=== PATIENT | male | born 1960 | race Caucasian/White ===

== ENCOUNTER 2020-02-19 04:22 | Outpatient (CLI) | payer MEDICARE, SELFPAY ==
[2020-02-19 10:48] LABS: CREATININE 0.85 mg/dL (0.70-1.30)
== END 2020-02-19 04:42 ==
PROVIDERS: Visit Provider Preventive Medicine Undersea and Hyperbaric Medicine
DX: C34.90 Malignant neoplasm of unspecified part of unspecified bronchus or lung (principal)
CPT/HCPCS: 36415; 82565

== ENCOUNTER 2020-03-02 08:06 | Outpatient (CLI) | payer MEDICARE, SELFPAY ==
[2020-03-02 08:22] LABS: Abs Immature Grans 0.02 10^3/uL (0.0-0.06); Absolute Basophil Count 0.08 10^3/uL (0.0-0.2); Absolute Eosinophil Count 0.43 10^3/uL (0.0-0.7); Absolute Lymphocyte Count 1.77 10^3/uL (1.2-3.4); Absolute Monocyte Count 0.86 10^3/uL (0.1-0.8); Absolute Neutrophil Count 4.46 10^3/uL (1.2-6.7); Eosinophils % 5.6; HCT 40.8 % (40.0-50.0); HGB 13.5 g/dL (13.5-17.5); Immature Grans % 0.3; Lymphocytes % 23.2; MCH 28.8 pg (27.0-33.0); MCHC 33.1 % (32.0-36.0); MPV 8.6 fL (8.0-11.0); Monocytes % 11.3; Neutrophils % 58.6; Nucleated RBC 0 %; Platelet Count 302 10^3/uL (130-400); RBC 4.69 10^6/uL (4.36-5.78); RDW-SD 40.6 fL; WBC 7.62 10^3/uL (4.4-10.8)
[2020-03-02 08:42] LABS: ALT 16 U/L (16-63); AST 24 U/L (15-37); Albumin 3.1 g/dL (3.4-5.0); Alkaline Phosphatase 98 U/L (46-116); Anion Gap 5.3 mmol/L (3-11); BUN 20 mg/dL (7-18); Bilirubin, Total 0.2 mg/dL (0.2-1.0); CO2 31.7 mmol/L (21.0-32.0); CREATININE 1.07 mg/dL (0.70-1.30); Calcium 9.2 mg/dL (8.5-10.1); Chloride 104 mmol/L (98-107); Glucose 89 mg/dL (74-106); Magnesium 2.1 mg/dL (1.8-2.4); Potassium 4.4 mmol/L (3.5-5.1); Sodium 141 mmol/L (136-145)
== END 2020-03-02 08:26 ==
PROVIDERS: Visit Provider Internal Medicine Medical Oncology
DX: C34.32 Malignant neoplasm of lower lobe, left bronchus or lung (principal)
CPT/HCPCS: 36415; 80053; 83735; 85025

== ENCOUNTER 2020-03-09 02:07 | Outpatient (CLI) | payer MEDICARE, SELFPAY ==
[2020-03-09 08:14] LABS: Abs Immature Grans 0.03 10^3/uL (0.0-0.06); Absolute Basophil Count 0.03 10^3/uL (0.0-0.2); Absolute Eosinophil Count 0.22 10^3/uL (0.0-0.7); Absolute Lymphocyte Count 0.87 10^3/uL (1.2-3.4); Absolute Neutrophil Count 3.17 10^3/uL (1.2-6.7); Basophils % 0.6; Eosinophils % 4.5; HCT 39.5 % (40.0-50.0); HGB 13.4 g/dL (13.5-17.5); Immature Grans % 0.6; Lymphocytes % 17.7; MCH 28.9 pg (27.0-33.0); MCHC 33.9 % (32.0-36.0); MCV 85.3 fL (80-95); MPV 8.6 fL (8.0-11.0); Monocytes % 12.2; Neutrophils % 64.4; Nucleated RBC 0 %; Platelet Count 320 10^3/uL (130-400); RBC 4.63 10^6/uL (4.36-5.78); RDW 12.7 % (11.8-14.1); WBC 4.92 10^3/uL (4.4-10.8)
[2020-03-09 09:29] LABS: ALT 26 U/L (16-63); AST 26 U/L (15-37); Albumin 3.1 g/dL (3.4-5.0); Alkaline Phosphatase 98 U/L (46-116); Anion Gap 8.6 mmol/L (3-11); BUN 16 mg/dL (7-18); Bilirubin, Total 0.2 mg/dL (0.2-1.0); CO2 27.4 mmol/L (21.0-32.0); CREATININE 0.93 mg/dL (0.70-1.30); Calcium 9.1 mg/dL (8.5-10.1); Chloride 104 mmol/L (98-107); Glucose 96 mg/dL (74-106); Magnesium 2.1 mg/dL (1.8-2.4); Potassium 3.8 mmol/L (3.5-5.1); Sodium 140 mmol/L (136-145)
== END 2020-03-09 02:27 ==
PROVIDERS: Visit Provider Internal Medicine Medical Oncology
DX: C34.32 Malignant neoplasm of lower lobe, left bronchus or lung (principal)
CPT/HCPCS: 36415; 80053; 83735; 85025

== ENCOUNTER 2020-03-16 03:57 | Outpatient (CLI) | payer MEDICARE, SELFPAY ==
[2020-03-16 08:15] LABS: Abs Immature Grans 0.02 10^3/uL (0.0-0.06); Absolute Basophil Count 0.05 10^3/uL (0.0-0.2); Absolute Eosinophil Count 0.16 10^3/uL (0.0-0.7); Absolute Lymphocyte Count 0.95 10^3/uL (1.2-3.4); Absolute Monocyte Count 0.48 10^3/uL (0.1-0.8); Absolute Neutrophil Count 2.89 10^3/uL (1.2-6.7); Basophils % 1.1; Eosinophils % 3.5; HGB 13.6 g/dL (13.5-17.5); Immature Grans % 0.4; Lymphocytes % 20.9; MCV 85.3 fL (80-95); MPV 8.6 fL (8.0-11.0); Monocytes % 10.5; Neutrophils % 63.6; Nucleated RBC 0 %; Platelet Count 289 10^3/uL (130-400); RBC 4.69 10^6/uL (4.36-5.78); RDW 12.9 % (11.8-14.1); RDW-SD 39.3 fL; WBC 4.55 10^3/uL (4.4-10.8)
[2020-03-16 08:28] LABS: ALT 24 U/L (16-63); AST 21 U/L (15-37); Albumin 3.1 g/dL (3.4-5.0); Alkaline Phosphatase 90 U/L (46-116); BUN 16 mg/dL (7-18); Bilirubin, Total 0.4 mg/dL (0.2-1.0); CREATININE 0.99 mg/dL (0.70-1.30); Calcium 8.9 mg/dL (8.5-10.1); Chloride 106 mmol/L (98-107); Glucose 114 mg/dL (74-106); Magnesium 1.9 mg/dL (1.8-2.4); Potassium 3.6 mmol/L (3.5-5.1); Sodium 142 mmol/L (136-145); Total Protein 6.9 g/dL (6.4-8.2)
== END 2020-03-16 04:17 ==
PROVIDERS: Visit Provider Internal Medicine Medical Oncology
DX: C34.32 Malignant neoplasm of lower lobe, left bronchus or lung (principal)
CPT/HCPCS: 36415; 80053; 83735; 85025

== ENCOUNTER 2020-03-17 10:53 | Outpatient (CLI) | payer MEDICARE, SELFPAY ==
[2020-03-18 18:21] VITALS: PULSE 100; PULSE 104; RESP 20; RESP 22; RESP 32; O2SAT 96; O2SAT 98
--- NOTE | 2020-03-18 18:46 | RESPIRATORY ---
Pt has resting Spo2 of 98% on RA. Upon ambulation for 6 minute walk pt did not desat below 96% and did not require supplemental o2. Mr. Rodgers had to stop multiple times during his walk and appeared to have severe air hunger, w/ RR reaching 38. It took several minutes for him to recover to a respiratory rate of 20, all while maintaining his o2 sat @ 96%.
== END 2020-03-17 11:13 ==
PROVIDERS: Visit Provider Internal Medicine Medical Oncology
DX: R06.89 Other abnormalities of breathing (principal)
CPT/HCPCS: 94618

== ENCOUNTER 2020-03-23 03:42 | Outpatient (CLI) | payer MEDICARE, SELFPAY ==
[2020-03-23 08:10] LABS: Abs Immature Grans 0.02 10^3/uL (0.0-0.06); Absolute Basophil Count 0.05 10^3/uL (0.0-0.2); Absolute Eosinophil Count 0.16 10^3/uL (0.0-0.7); Absolute Lymphocyte Count 0.66 10^3/uL (1.2-3.4); Absolute Monocyte Count 0.49 10^3/uL (0.1-0.8); Absolute Neutrophil Count 1.84 10^3/uL (1.2-6.7); Basophils % 1.6; HCT 38.8 % (40.0-50.0); HGB 13.1 g/dL (13.5-17.5); Immature Grans % 0.6; Lymphocytes % 20.5; MCHC 33.8 % (32.0-36.0); MCV 85.8 fL (80-95); MPV 8.4 fL (8.0-11.0); Monocytes % 15.2; Neutrophils % 57.1; Nucleated RBC 0 %; Platelet Count 258 10^3/uL (130-400); RBC 4.52 10^6/uL (4.36-5.78); RDW 13.2 % (11.8-14.1); RDW-SD 40.1 fL; WBC 3.22 10^3/uL (4.4-10.8)
[2020-03-23 08:28] LABS: ALT 25 U/L (16-63); AST 20 U/L (15-37); Albumin 3.1 g/dL (3.4-5.0); Alkaline Phosphatase 91 U/L (46-116); Anion Gap 6.6 mmol/L (3-11); BUN 21 mg/dL (7-18); Bilirubin, Total 0.2 mg/dL (0.2-1.0); CO2 27.4 mmol/L (21.0-32.0); CREATININE 0.92 mg/dL (0.70-1.30); Calcium 8.8 mg/dL (8.5-10.1); Chloride 105 mmol/L (98-107); Glucose 117 mg/dL (74-106); Magnesium 1.8 mg/dL (1.8-2.4); Potassium 3.8 mmol/L (3.5-5.1); Sodium 139 mmol/L (136-145); Total Protein 6.8 g/dL (6.4-8.2)
== END 2020-03-23 04:02 ==
PROVIDERS: Visit Provider Internal Medicine Medical Oncology
DX: C34.32 Malignant neoplasm of lower lobe, left bronchus or lung (principal)
CPT/HCPCS: 36415; 80053; 83735; 85025

== ENCOUNTER 2020-03-30 02:53 | Outpatient (CLI) | payer MEDICARE, SELFPAY ==
[2020-03-30 08:13] LABS: Abs Immature Grans 0.03 10^3/uL (0.0-0.06); Absolute Basophil Count 0.03 10^3/uL (0.0-0.2); Absolute Eosinophil Count 0.18 10^3/uL (0.0-0.7); Absolute Lymphocyte Count 0.57 10^3/uL (1.2-3.4); Absolute Neutrophil Count 2.42 10^3/uL (1.2-6.7); Basophils % 0.8; HCT 37.9 % (40.0-50.0); HGB 12.7 g/dL (13.5-17.5); Immature Grans % 0.8; Lymphocytes % 15.7; MCH 29.1 pg (27.0-33.0); MCHC 33.5 % (32.0-36.0); MCV 86.7 fL (80-95); MPV 8.5 fL (8.0-11.0); Neutrophils % 66.7; Nucleated RBC 0 %; Platelet Count 182 10^3/uL (130-400); RBC 4.37 10^6/uL (4.36-5.78); RDW 14.1 % (11.8-14.1); RDW-SD 42.7 fL; WBC 3.63 10^3/uL (4.4-10.8)
[2020-03-30 08:24] LABS: ALT 24 U/L (16-63); AST 20 U/L (15-37); Albumin 3.2 g/dL (3.4-5.0); Alkaline Phosphatase 75 U/L (46-116); Anion Gap 5.7 mmol/L (3-11); BUN 14 mg/dL (7-18); Bilirubin, Total 0.3 mg/dL (0.2-1.0); CO2 30.3 mmol/L (21.0-32.0); CREATININE 0.92 mg/dL (0.70-1.30); Calcium 8.9 mg/dL (8.5-10.1); Chloride 104 mmol/L (98-107); Glucose 109 mg/dL (74-106); Magnesium 1.7 mg/dL (1.8-2.4); Sodium 140 mmol/L (136-145); Total Protein 6.7 g/dL (6.4-8.2)
== END 2020-03-30 03:13 ==
PROVIDERS: Visit Provider Internal Medicine Medical Oncology
DX: C34.32 Malignant neoplasm of lower lobe, left bronchus or lung (principal)
CPT/HCPCS: 36415; 80053; 83735; 85025

== ENCOUNTER 2020-04-06 01:46 | Outpatient (CLI) | payer MEDICARE, SELFPAY ==
[2020-04-06 08:19] LABS: Abs Immature Grans 0.04 10^3/uL (0.0-0.06); Absolute Basophil Count 0.02 10^3/uL (0.0-0.2); Absolute Eosinophil Count 0.12 10^3/uL (0.0-0.7); Absolute Lymphocyte Count 0.45 10^3/uL (1.2-3.4); Absolute Monocyte Count 0.36 10^3/uL (0.1-0.8); Absolute Neutrophil Count 1.87 10^3/uL (1.2-6.7); Basophils % 0.7; Eosinophils % 4.2; HCT 35.6 % (40.0-50.0); HGB 11.9 g/dL (13.5-17.5); Immature Grans % 1.4; Lymphocytes % 15.7; MCH 28.9 pg (27.0-33.0); MCHC 33.4 % (32.0-36.0); MCV 86.4 fL (80-95); Monocytes % 12.6; Neutrophils % 65.4; Nucleated RBC 0 %; Platelet Count 129 10^3/uL (130-400); RBC 4.12 10^6/uL (4.36-5.78); RDW 14.3 % (11.8-14.1); RDW-SD 42.4 fL; WBC 2.86 10^3/uL (4.4-10.8)
[2020-04-06 08:34] LABS: ALT 22 U/L (16-63); AST 17 U/L (15-37); Albumin 3.2 g/dL (3.4-5.0); Alkaline Phosphatase 78 U/L (46-116); Anion Gap 8.7 mmol/L (3-11); BUN 19 mg/dL (7-18); Bilirubin, Total 0.3 mg/dL (0.2-1.0); CO2 27.3 mmol/L (21.0-32.0); CREATININE 1.01 mg/dL (0.70-1.30); Calcium 8.5 mg/dL (8.5-10.1); Chloride 106 mmol/L (98-107); Glucose 115 mg/dL (74-106); Magnesium 1.7 mg/dL (1.8-2.4); Sodium 142 mmol/L (136-145); Total Protein 6.6 g/dL (6.4-8.2)
== END 2020-04-06 02:06 ==
PROVIDERS: Visit Provider Internal Medicine Medical Oncology
DX: C34.32 Malignant neoplasm of lower lobe, left bronchus or lung (principal)
CPT/HCPCS: 36415; 80053; 83735; 85025

== ENCOUNTER 2020-04-13 02:10 | Outpatient (CLI) | payer MEDICARE, SELFPAY ==
[2020-04-13 07:56] LABS: Abs Immature Grans 0.01 10^3/uL (0.0-0.06); Absolute Basophil Count 0.02 10^3/uL (0.0-0.2); Absolute Eosinophil Count 0.09 10^3/uL (0.0-0.7); Absolute Lymphocyte Count 0.36 10^3/uL (1.2-3.4); Absolute Monocyte Count 0.25 10^3/uL (0.1-0.8); Absolute Neutrophil Count 1.23 10^3/uL (1.2-6.7); Eosinophils % 4.6; HCT 32.1 % (40.0-50.0); HGB 11.2 g/dL (13.5-17.5); Immature Grans % 0.5; Lymphocytes % 18.4; MCH 29.2 pg (27.0-33.0); MCHC 34.9 % (32.0-36.0); MCV 83.8 fL (80-95); MPV 8.9 fL (8.0-11.0); Monocytes % 12.8; Neutrophils % 62.7; Nucleated RBC 0 %; Platelet Count 123 10^3/uL (130-400); RBC 3.83 10^6/uL (4.36-5.78); RDW 14.5 % (11.8-14.1); RDW-SD 41.4 fL
[2020-04-13 08:13] LABS: ALT 21 U/L (16-63); AST 16 U/L (15-37); Albumin 3.2 g/dL (3.4-5.0); Alkaline Phosphatase 80 U/L (46-116); Anion Gap 7.1 mmol/L (3-11); BUN 26 mg/dL (7-18); Bilirubin, Total 0.5 mg/dL (0.2-1.0); CO2 28.9 mmol/L (21.0-32.0); CREATININE 0.89 mg/dL (0.70-1.30); Calcium 9.2 mg/dL (8.5-10.1); Chloride 104 mmol/L (98-107); FREE T4 0.84 ng/dL (0.76-1.46); Glucose 92 mg/dL (74-106); Magnesium 1.8 mg/dL (1.8-2.4); Potassium 4.2 mmol/L (3.5-5.1); Sodium 140 mmol/L (136-145); TSH 2.79 uIU/mL (0.36-3.74); Total Protein 6.7 g/dL (6.4-8.2)
[2020-04-13 08:24] LABS: Diff Comment Diff Reviewed; WBC 1.96 10^3/uL (4.4-10.8)
[2020-04-13 08:25] LABS: RBC Morphology Normal
== END 2020-04-13 02:30 ==
PROVIDERS: Visit Provider Internal Medicine Medical Oncology
DX: C34.32 Malignant neoplasm of lower lobe, left bronchus or lung (principal); Z79.899 Other long term (current) drug therapy
CPT/HCPCS: 36415; 80053; 83735; 84439; 84443; 85025

== ENCOUNTER 2020-05-04 12:46 | Outpatient (CLI) | payer MEDICARE, SELFPAY ==
[2020-05-04 13:07] LABS: Abs Immature Grans 0.07 10^3/uL (0.0-0.06); Absolute Basophil Count 0.05 10^3/uL (0.0-0.2); Absolute Eosinophil Count 0.41 10^3/uL (0.0-0.7); Absolute Lymphocyte Count 0.62 10^3/uL (1.2-3.4); Absolute Monocyte Count 0.72 10^3/uL (0.1-0.8); Absolute Neutrophil Count 2.43 10^3/uL (1.2-6.7); Basophils % 1.2; Eosinophils % 9.5; HCT 28.4 % (40.0-50.0); HGB 9.6 g/dL (13.5-17.5); Immature Grans % 1.6; Lymphocytes % 14.4; MCH 30.2 pg (27.0-33.0); MCHC 33.8 % (32.0-36.0); MCV 89.3 fL (80-95); MPV 9.2 fL (8.0-11.0); Monocytes % 16.7; Neutrophils % 56.6; Nucleated RBC 0 %; Platelet Count 197 10^3/uL (130-400); RBC 3.18 10^6/uL (4.36-5.78); RDW 19.8 % (11.8-14.1); RDW-SD 60.9 fL
[2020-05-04 13:20] LABS: ALT 28 U/L (16-63); AST 15 U/L (15-37); Albumin 2.9 g/dL (3.4-5.0); Alkaline Phosphatase 106 U/L (46-116); Anion Gap 6.7 mmol/L (3-11); BUN 19 mg/dL (7-18); Bilirubin, Total 0.3 mg/dL (0.2-1.0); CO2 29.3 mmol/L (21.0-32.0); CREATININE 1.03 mg/dL (0.70-1.30); Calcium 8.8 mg/dL (8.5-10.1); Chloride 104 mmol/L (98-107); FREE T4 1.08 ng/dL (0.76-1.46); Glucose 114 mg/dL (74-106); Sodium 140 mmol/L (136-145); TSH 1.74 uIU/mL (0.36-3.74); Total Protein 7.1 g/dL (6.4-8.2)
== END 2020-05-04 13:06 ==
PROVIDERS: Visit Provider Internal Medicine Medical Oncology
DX: C34.32 Malignant neoplasm of lower lobe, left bronchus or lung (principal); Z79.899 Other long term (current) drug therapy
CPT/HCPCS: 36415; 80053; 83735; 84439; 84443; 85025

== ENCOUNTER 2020-06-01 03:24 | Outpatient (CLI) | payer OTHER, SELFPAY ==
[2020-06-01 09:21] LABS: Abs Immature Grans 0.02 10^3/uL (0.0-0.06); Absolute Basophil Count 0.05 10^3/uL (0.0-0.2); Absolute Lymphocyte Count 0.91 10^3/uL (1.2-3.4); Absolute Monocyte Count 0.73 10^3/uL (0.1-0.8); Absolute Neutrophil Count 4.52 10^3/uL (1.2-6.7); Basophils % 0.7; Eosinophils % 7.4; HGB 12.2 g/dL (13.5-17.5); Immature Grans % 0.3; Lymphocytes % 13.5; MCHC 33.9 % (32.0-36.0); MCV 94.5 fL (80-95); MPV 8.6 fL (8.0-11.0); Monocytes % 10.8; Neutrophils % 67.3; Nucleated RBC 0 %; Platelet Count 216 10^3/uL (130-400); RBC 3.81 10^6/uL (4.36-5.78); RDW 17.3 % (11.8-14.1); RDW-SD 59.9 fL; WBC 6.73 10^3/uL (4.4-10.8)
[2020-06-01 09:47] LABS: ALT 36 U/L (16-63); AST 24 U/L (15-37); Albumin 3.3 g/dL (3.4-5.0); Alkaline Phosphatase 83 U/L (46-116); Anion Gap 7.7 mmol/L (3-11); BUN 16 mg/dL (7-18); Bilirubin, Total 0.5 mg/dL (0.2-1.0); CO2 29.3 mmol/L (21.0-32.0); Calcium 9.6 mg/dL (8.5-10.1); Chloride 104 mmol/L (98-107); FREE T4 0.91 ng/dL (0.76-1.46); Glucose 113 mg/dL (74-106); Magnesium 2.2 mg/dL (1.8-2.4); Potassium 3.9 mmol/L (3.5-5.1); Sodium 141 mmol/L (136-145); TSH 2.76 uIU/mL (0.36-3.74); Total Protein 7.4 g/dL (6.4-8.2)
== END 2020-06-01 03:25 | disposition home or self-care (01) ==
PROVIDERS: PCP Nurse Practitioner Family; Visit Provider Internal Medicine Medical Oncology
DX: C34.32 Malignant neoplasm of lower lobe, left bronchus or lung (principal); Z79.899 Other long term (current) drug therapy
CPT/HCPCS: 36415; 80053; 83735; 84439; 84443; 85025

== ENCOUNTER 2020-06-29 04:24 | Outpatient (CLI) | payer OTHER, SELFPAY ==
[2020-06-29 10:39] LABS: Abs Immature Grans 0.02 10^3/uL (0.0-0.06); Absolute Basophil Count 0.01 10^3/uL (0.0-0.2); Absolute Lymphocyte Count 1.11 10^3/uL (1.2-3.4); Absolute Monocyte Count 0.68 10^3/uL (0.1-0.8); Basophils % 0.2; HCT 45.6 % (40.0-50.0); HGB 15.7 g/dL (13.5-17.5); Immature Grans % 0.3; Lymphocytes % 16.8; MCH 32.9 pg (27.0-33.0); MCHC 34.4 % (32.0-36.0); MCV 95.6 fL (80-95); MPV 9.5 fL (8.0-11.0); Monocytes % 10.3; Neutrophils % 69.4; Nucleated RBC 0 %; Platelet Count 151 10^3/uL (130-400); RBC 4.77 10^6/uL (4.36-5.78); RDW 12.7 % (11.8-14.1); RDW-SD 44.9 fL; WBC 6.62 10^3/uL (4.4-10.8)
[2020-06-29 11:04] LABS: ALT 35 U/L (16-63); AST 14 U/L (15-37); Albumin 3.3 g/dL (3.4-5.0); Alkaline Phosphatase 72 U/L (46-116); Anion Gap 6.9 mmol/L (3-11); BUN 18 mg/dL (7-18); Bilirubin, Total 0.5 mg/dL (0.2-1.0); CO2 30.1 mmol/L (21.0-32.0); Calcium 9.1 mg/dL (8.5-10.1); Chloride 103 mmol/L (98-107); FREE T4 0.96 ng/dL (0.76-1.46); Glucose 86 mg/dL (74-106); Magnesium 2.1 mg/dL (1.8-2.4); Potassium 3.8 mmol/L (3.5-5.1); Sodium 140 mmol/L (136-145); TSH 2.54 uIU/mL (0.36-3.74); Total Protein 6.8 g/dL (6.4-8.2)
== END 2020-06-29 04:25 | disposition home or self-care (01) ==
LOC: LBO 04:24
PROVIDERS: PCP Nurse Practitioner Family; Visit Provider Internal Medicine Medical Oncology
DX: C34.32 Malignant neoplasm of lower lobe, left bronchus or lung (principal); Z79.899 Other long term (current) drug therapy
CPT/HCPCS: 36415; 80053; 83735; 84439; 84443; 85025

== ENCOUNTER 2020-07-27 04:23 | Outpatient (CLI) | payer OTHER, SELFPAY ==
[2020-07-27 10:48] LABS: Abs Immature Grans 0.04 10^3/uL (0.0-0.06); Absolute Basophil Count 0.03 10^3/uL (0.0-0.2); Absolute Eosinophil Count 0.08 10^3/uL (0.0-0.7); Absolute Monocyte Count 0.69 10^3/uL (0.1-0.8); Absolute Neutrophil Count 4.32 10^3/uL (1.2-6.7); Basophils % 0.5; Eosinophils % 1.2; HCT 42.6 % (40.0-50.0); HGB 14.7 g/dL (13.5-17.5); Immature Grans % 0.6; Lymphocytes % 22.5; MCH 32.6 pg (27.0-33.0); MCHC 34.5 % (32.0-36.0); MCV 94.5 fL (80-95); MPV 8.3 fL (8.0-11.0); Monocytes % 10.4; Neutrophils % 64.8; Nucleated RBC 0 %; Platelet Count 159 10^3/uL (130-400); RBC 4.51 10^6/uL (4.36-5.78); RDW 12.2 % (11.8-14.1); RDW-SD 42.4 fL; WBC 6.66 10^3/uL (4.4-10.8)
[2020-07-27 11:05] LABS: ALT 31 U/L (16-63); AST 14 U/L (15-37); Albumin 3.2 g/dL (3.4-5.0); Alkaline Phosphatase 62 U/L (46-116); Anion Gap 9.1 mmol/L (3-11); BUN 21 mg/dL (7-18); Bilirubin, Total 0.2 mg/dL (0.2-1.0); CO2 29.9 mmol/L (21.0-32.0); Calcium 9.1 mg/dL (8.5-10.1); Chloride 104 mmol/L (98-107); FREE T4 0.82 ng/dL (0.76-1.46); Glucose 75 mg/dL (74-106); Magnesium 1.9 mg/dL (1.8-2.4); Potassium 3.8 mmol/L (3.5-5.1); Sodium 143 mmol/L (136-145); TSH 1.63 uIU/mL (0.36-3.74); Total Protein 6.3 g/dL (6.4-8.2)
== END 2020-07-27 04:24 | disposition home or self-care (01) ==
PROVIDERS: PCP Nurse Practitioner Family; Visit Provider Internal Medicine Medical Oncology
DX: C34.32 Malignant neoplasm of lower lobe, left bronchus or lung (principal); Z79.899 Other long term (current) drug therapy
CPT/HCPCS: 36415; 80053; 83735; 84439; 84443; 85025

== ENCOUNTER 2020-08-24 02:24 | Outpatient (CLI) | payer OTHER, SELFPAY ==
[2020-08-24 13:45] LABS: Abs Immature Grans 0.04 10^3/uL (0.0-0.06); Absolute Basophil Count 0.04 10^3/uL (0.0-0.2); Absolute Eosinophil Count 0.02 10^3/uL (0.0-0.7); Absolute Lymphocyte Count 0.49 10^3/uL (1.2-3.4); Absolute Monocyte Count 0.27 10^3/uL (0.1-0.8); Absolute Neutrophil Count 8.44 10^3/uL (1.2-6.7); Basophils % 0.4; Eosinophils % 0.2; HGB 15.5 g/dL (13.5-17.5); Immature Grans % 0.4; Lymphocytes % 5.3; MCHC 34.4 % (32.0-36.0); MCV 92.8 fL (80-95); MPV 8.1 fL (8.0-11.0); Monocytes % 2.9; Neutrophils % 90.8; Nucleated RBC 0 %; Platelet Count 238 10^3/uL (130-400); RBC 4.85 10^6/uL (4.36-5.78); RDW 12.9 % (11.8-14.1); RDW-SD 43.6 fL
[2020-08-24 14:10] LABS: ALT 31 U/L (16-63); AST 16 U/L (15-37); Albumin 3.5 g/dL (3.4-5.0); Alkaline Phosphatase 80 U/L (46-116); BUN 22 mg/dL (7-18); Bilirubin, Total 0.4 mg/dL (0.2-1.0); CREATININE 1.1 mg/dL (0.70-1.30); Calcium 9.4 mg/dL (8.5-10.1); Chloride 105 mmol/L (98-107); Glucose 132 mg/dL (74-106); Potassium 4.2 mmol/L (3.5-5.1); Sodium 142 mmol/L (136-145); TSH 1.04 uIU/mL (0.36-3.74); Total Protein 6.9 g/dL (6.4-8.2)
== END 2020-08-24 02:25 | disposition home or self-care (01) ==
LOC: LBO 02:24
PROVIDERS: PCP Nurse Practitioner Family; Visit Provider Internal Medicine Medical Oncology
DX: C34.32 Malignant neoplasm of lower lobe, left bronchus or lung (principal); Z79.899 Other long term (current) drug therapy
CPT/HCPCS: 36415; 80053; 83735; 84439; 84443; 85025

== ENCOUNTER 2020-09-28 04:39 | Outpatient (CLI) | payer OTHER, SELFPAY ==
[2020-09-28 12:42] LABS: Abs Immature Grans 0.03 10^3/uL (0.0-0.06); Absolute Basophil Count 0.03 10^3/uL (0.0-0.2); Absolute Eosinophil Count 0.17 10^3/uL (0.0-0.7); Absolute Lymphocyte Count 0.84 10^3/uL (1.2-3.4); Absolute Monocyte Count 0.54 10^3/uL (0.1-0.8); Absolute Neutrophil Count 3.41 10^3/uL (1.2-6.7); Basophils % 0.6; Eosinophils % 3.4; HCT 39.8 % (40.0-50.0); HGB 13.8 g/dL (13.5-17.5); Immature Grans % 0.6; Lymphocytes % 16.7; MCH 32.4 pg (27.0-33.0); MCHC 34.7 % (32.0-36.0); MCV 93.4 fL (80-95); Monocytes % 10.8; Neutrophils % 67.9; Nucleated RBC 0 %; Platelet Count 227 10^3/uL (130-400); RBC 4.26 10^6/uL (4.36-5.78); RDW 13.2 % (11.8-14.1); RDW-SD 45.1 fL; WBC 5.02 10^3/uL (4.4-10.8)
[2020-09-28 13:00] LABS: Diff Comment Agrees w/ Instrument; RBC Morphology Normal
[2020-09-28 13:09] LABS: ALT 31 U/L (16-63); AST 16 U/L (15-37); Albumin 3.5 g/dL (3.4-5.0); Alkaline Phosphatase 72 U/L (46-116); Anion Gap 7.4 mmol/L (3-11); BUN 32 mg/dL (7-18); Bilirubin, Total 0.7 mg/dL (0.2-1.0); CO2 31.6 mmol/L (21.0-32.0); CREATININE 1.3 mg/dL (0.70-1.30); Calcium 9.1 mg/dL (8.5-10.1); Chloride 103 mmol/L (98-107); FREE T4 0.97 ng/dL (0.76-1.46); Glucose 99 mg/dL (74-106); Magnesium 1.9 mg/dL (1.8-2.4); Potassium 3.6 mmol/L (3.5-5.1); Sodium 142 mmol/L (136-145); TSH 1.71 uIU/mL (0.36-3.74); Total Protein 6.7 g/dL (6.4-8.2)
== END 2020-09-28 04:40 | disposition home or self-care (01) ==
LOC: LBO 04:39
PROVIDERS: PCP Nurse Practitioner Family; Visit Provider Internal Medicine Medical Oncology
DX: I10 Essential (primary) hypertension (principal); C34.32 Malignant neoplasm of lower lobe, left bronchus or lung; Z79.899 Other long term (current) drug therapy
CPT/HCPCS: 36415; 80053; 83735; 84439; 84443; 85025

== ENCOUNTER 2020-10-28 02:52 | Outpatient (CLI) | payer OTHER, SELFPAY ==
[2020-10-28 13:26] LABS: Abs Immature Grans 0.02 10^3/uL (0.0-0.06); Absolute Basophil Count 0.03 10^3/uL (0.0-0.2); Absolute Lymphocyte Count 0.64 10^3/uL (1.2-3.4); Absolute Monocyte Count 0.27 10^3/uL (0.1-0.8); Absolute Neutrophil Count 5.55 10^3/uL (1.2-6.7); Basophils % 0.5; Eosinophils % 1.5; HCT 40.7 % (40.0-50.0); HGB 14.1 g/dL (13.5-17.5); Immature Grans % 0.3; Lymphocytes % 9.7; MCH 31.8 pg (27.0-33.0); MCHC 34.6 % (32.0-36.0); MCV 91.9 fL (80-95); MPV 8.7 fL (8.0-11.0); Monocytes % 4.1; Neutrophils % 83.9; Nucleated RBC 0 %; Platelet Count 298 10^3/uL (130-400); RBC 4.43 10^6/uL (4.36-5.78); RDW 12.5 % (11.8-14.1); RDW-SD 42.5 fL; WBC 6.61 10^3/uL (4.4-10.8)
[2020-10-28 13:45] LABS: ALT 30 U/L (16-63); AST 14 U/L (15-37); Albumin 3.6 g/dL (3.4-5.0); Alkaline Phosphatase 72 U/L (46-116); BUN 22 mg/dL (7-18); Bilirubin, Total 0.3 mg/dL (0.2-1.0); CREATININE 1.2 mg/dL (0.70-1.30); Calcium 9.1 mg/dL (8.5-10.1); Chloride 106 mmol/L (98-107); FREE T4 1.03 ng/dL (0.76-1.46); Glucose 130 mg/dL (74-106); Magnesium 1.9 mg/dL (1.8-2.4); Potassium 4.2 mmol/L (3.5-5.1); Sodium 143 mmol/L (136-145); TSH 0.68 uIU/mL (0.36-3.74); Total Protein 6.9 g/dL (6.4-8.2)
== END 2020-10-28 02:53 | disposition home or self-care (01) ==
LOC: LBO 02:52
PROVIDERS: PCP Nurse Practitioner Family; Visit Provider Internal Medicine Medical Oncology
DX: C34.32 Malignant neoplasm of lower lobe, left bronchus or lung (principal); Z79.899 Other long term (current) drug therapy
CPT/HCPCS: 36415; 80053; 83735; 84439; 84443; 85025

== ENCOUNTER 2020-11-23 02:16 | Outpatient (CLI) | payer OTHER, SELFPAY ==
[2020-11-23 13:19] LABS: Abs Immature Grans 0.01 10^3/uL (0.0-0.06); Absolute Basophil Count 0.04 10^3/uL (0.0-0.2); Absolute Eosinophil Count 0.22 10^3/uL (0.0-0.7); Absolute Lymphocyte Count 1.01 10^3/uL (1.2-3.4); Absolute Monocyte Count 0.58 10^3/uL (0.1-0.8); Absolute Neutrophil Count 4.42 10^3/uL (1.2-6.7); Basophils % 0.6; Eosinophils % 3.5; HCT 44.2 % (40.0-50.0); Immature Grans % 0.2; Lymphocytes % 16.1; MCH 30.9 pg (27.0-33.0); MCHC 33.9 % (32.0-36.0); MCV 90.9 fL (80-95); MPV 8.5 fL (8.0-11.0); Monocytes % 9.2; Neutrophils % 70.4; Nucleated RBC 0 %; Platelet Count 240 10^3/uL (130-400); RBC 4.86 10^6/uL (4.36-5.78); RDW 11.9 % (11.8-14.1); RDW-SD 39.6 fL; WBC 6.28 10^3/uL (4.4-10.8)
[2020-11-23 13:45] LABS: ALT 35 U/L (16-63); AST 18 U/L (15-37); Albumin 3.8 g/dL (3.4-5.0); Alkaline Phosphatase 65 U/L (46-116); Anion Gap 8.2 mmol/L (3-11); BUN 17 mg/dL (7-18); Bilirubin, Total 0.4 mg/dL (0.2-1.0); CO2 29.8 mmol/L (21.0-32.0); CREATININE 1.1 mg/dL (0.70-1.30); Chloride 104 mmol/L (98-107); FREE T4 0.94 ng/dL (0.76-1.46); Glucose 101 mg/dL (74-106); Magnesium 2.1 mg/dL (1.8-2.4); Potassium 3.4 mmol/L (3.5-5.1); Sodium 142 mmol/L (136-145)
== END 2020-11-23 02:17 | disposition home or self-care (01) ==
LOC: LBO 02:16
PROVIDERS: PCP Nurse Practitioner Family; Visit Provider Internal Medicine Medical Oncology
DX: C34.32 Malignant neoplasm of lower lobe, left bronchus or lung (principal); Z79.899 Other long term (current) drug therapy
CPT/HCPCS: 36415; 80053; 83735; 84439; 84443; 85025

== ENCOUNTER 2020-12-21 03:52 | Outpatient (CLI) | payer OTHER, SELFPAY ==
[2020-12-21 14:40] LABS: Absolute Eosinophil Count 0.22 10^3/uL (0.0-0.7); Absolute Lymphocyte Count 1.05 10^3/uL (1.2-3.4); Absolute Monocyte Count 0.49 10^3/uL (0.1-0.8); Absolute Neutrophil Count 3.98 10^3/uL (1.2-6.7); Basophils % 0.5; Eosinophils % 3.8; HCT 42.5 % (40.0-50.0); HGB 14.7 g/dL (13.5-17.5); Immature Grans % 0.2; Lymphocytes % 18.2; MCH 30.9 pg (27.0-33.0); MCHC 34.6 % (32.0-36.0); MCV 89.5 fL (80-95); MPV 8.1 fL (8.0-11.0); Monocytes % 8.5; Neutrophils % 68.8; Nucleated RBC 0 %; Platelet Count 247 10^3/uL (130-400); RBC 4.75 10^6/uL (4.36-5.78); RDW-SD 39.5 fL; WBC 5.78 10^3/uL (4.4-10.8)
[2020-12-21 14:41] LABS: Abs Immature Grans 0.01 10^3/uL (0.0-0.06); Absolute Basophil Count 0.03 10^3/uL (0.0-0.2)
[2020-12-21 14:51] LABS: Magnesium 2.1 mg/dL (1.8-2.4)
[2020-12-21 15:02] LABS: ALT 34 U/L (16-63); AST 16 U/L (15-37); Albumin 3.8 g/dL (3.4-5.0); Alkaline Phosphatase 82 U/L (46-116); Anion Gap 8.1 mmol/L (3-11); BUN 24 mg/dL (7-18); Bilirubin, Total 0.3 mg/dL (0.2-1.0); CO2 28.9 mmol/L (21.0-32.0); CREATININE 1.1 mg/dL (0.70-1.30); Chloride 105 mmol/L (98-107); Glucose 119 mg/dL (74-106); Potassium 3.2 mmol/L (3.5-5.1); Sodium 142 mmol/L (136-145); TSH 0.96 uIU/mL (0.36-3.74); Total Protein 7.1 g/dL (6.4-8.2)
== END 2020-12-21 03:53 | disposition home or self-care (01) ==
LOC: LBO 03:52
PROVIDERS: PCP Nurse Practitioner Family; Visit Provider Internal Medicine Medical Oncology
DX: C34.32 Malignant neoplasm of lower lobe, left bronchus or lung (principal); Z79.899 Other long term (current) drug therapy
CPT/HCPCS: 36415; 80053; 83735; 84439; 84443; 85025

== ENCOUNTER 2021-01-25 03:58 | Outpatient (CLI) | payer OTHER, SELFPAY ==
[2021-01-25 13:15] LABS: Abs Immature Grans 0.02 10^3/uL (0.0-0.06); Absolute Basophil Count 0.04 10^3/uL (0.0-0.2); Absolute Eosinophil Count 0.32 10^3/uL (0.0-0.7); Absolute Monocyte Count 0.56 10^3/uL (0.1-0.8); Absolute Neutrophil Count 4.14 10^3/uL (1.2-6.7); Basophils % 0.7; Eosinophils % 5.3; HCT 39.6 % (40.0-50.0); HGB 13.5 g/dL (13.5-17.5); Immature Grans % 0.3; Lymphocytes % 16.4; MCH 30.8 pg (27.0-33.0); MCHC 34.1 % (32.0-36.0); MCV 90.2 fL (80-95); MPV 8.4 fL (8.0-11.0); Monocytes % 9.2; Neutrophils % 68.1; Nucleated RBC 0 %; Platelet Count 235 10^3/uL (130-400); RBC 4.39 10^6/uL (4.36-5.78); RDW 12.8 % (11.8-14.1); RDW-SD 41.9 fL; WBC 6.08 10^3/uL (4.4-10.8)
[2021-01-25 13:38] LABS: ALT 31 U/L (16-63); AST 21 U/L (15-37); Albumin 3.5 g/dL (3.4-5.0); Alkaline Phosphatase 77 U/L (46-116); Anion Gap 5.9 mmol/L (3-11); BUN 19 mg/dL (7-18); Bilirubin, Total 0.4 mg/dL (0.2-1.0); CO2 33.1 mmol/L (21.0-32.0); CREATININE 1.4 mg/dL (0.70-1.30); Calcium 8.6 mg/dL (8.5-10.1); Chloride 106 mmol/L (98-107); Estimated GFR 51.69 (mL/min/1.73m2); FREE T4 0.87 ng/dL (0.76-1.46); Glucose 86 mg/dL (74-106); Magnesium 2.2 mg/dL (1.8-2.4); Potassium 3.2 mmol/L (3.5-5.1); Sodium 145 mmol/L (136-145); TSH 0.42 uIU/mL (0.36-3.74); Total Protein 6.9 g/dL (6.4-8.2)
== END 2021-01-25 03:59 | disposition home or self-care (01) ==
LOC: LBO 03:58
PROVIDERS: PCP Nurse Practitioner Family; Visit Provider Internal Medicine Medical Oncology
DX: Z79.899 Other long term (current) drug therapy (principal); C34.32 Malignant neoplasm of lower lobe, left bronchus or lung
CPT/HCPCS: 36415; 80053; 83735; 84439; 84443; 85025

== ENCOUNTER 2021-02-22 16:24 | Outpatient (CLI) | payer MEDICARE, SELFPAY ==
[2021-02-22 13:53] LABS: Abs Immature Grans 0.05 10^3/uL (0.0-0.06); Absolute Basophil Count 0.03 10^3/uL (0.0-0.2); Absolute Eosinophil Count 0.12 10^3/uL (0.0-0.7); Absolute Lymphocyte Count 0.65 10^3/uL (1.2-3.4); Absolute Monocyte Count 0.49 10^3/uL (0.1-0.8); Basophils % 0.3; Eosinophils % 1.1; HCT 45.3 % (40.0-50.0); HGB 15.1 g/dL (13.5-17.5); Immature Grans % 0.5; MCH 30.5 pg (27.0-33.0); MCHC 33.3 % (32.0-36.0); MCV 91.5 fL (80-95); MPV 8.3 fL (8.0-11.0); Monocytes % 4.5; Neutrophils % 87.6; Nucleated RBC 0 %; Platelet Count 246 10^3/uL (130-400); RBC 4.95 10^6/uL (4.36-5.78); RDW 13.2 % (11.8-14.1); RDW-SD 44.5 fL; WBC 10.88 10^3/uL (4.4-10.8)
[2021-02-22 13:54] LABS: Absolute Neutrophil Count 9.53 10^3/uL (1.2-6.7)
[2021-02-22 14:15] LABS: ALT 27 U/L (16-63); AST 13 U/L (15-37); Albumin 3.6 g/dL (3.4-5.0); Alkaline Phosphatase 68 U/L (46-116); Anion Gap 5.8 mmol/L (3-11); BUN 29 mg/dL (7-18); Bilirubin, Total 0.4 mg/dL (0.2-1.0); CO2 32.2 mmol/L (21.0-32.0); CREATININE 1.2 mg/dL (0.70-1.30); Calcium 9.1 mg/dL (8.5-10.1); Chloride 103 mmol/L (98-107); FREE T4 0.86 ng/dL (0.76-1.46); Glucose 118 mg/dL (74-106); Potassium 3.5 mmol/L (3.5-5.1); Sodium 141 mmol/L (136-145); TSH 0.95 uIU/mL (0.36-3.74); Total Protein 7.1 g/dL (6.4-8.2)
== END 2021-02-22 16:25 | disposition home or self-care (01) ==
LOC: LBO 16:26
PROVIDERS: PCP Nurse Practitioner Family; Visit Provider Internal Medicine Medical Oncology
DX: Z79.899 Other long term (current) drug therapy (principal); C34.32 Malignant neoplasm of lower lobe, left bronchus or lung
CPT/HCPCS: 36415; 80053; 83735; 84439; 84443; 85025

== ENCOUNTER 2021-03-01 14:39 | Outpatient (CLI) | payer MEDICARE, SELFPAY ==
[2021-03-01 13:20] LABS: Abs Immature Grans 0.02 10^3/uL (0.0-0.06); Absolute Basophil Count 0.02 10^3/uL (0.0-0.2); Absolute Eosinophil Count 0.37 10^3/uL (0.0-0.7); Absolute Lymphocyte Count 0.85 10^3/uL (1.2-3.4); Absolute Monocyte Count 0.52 10^3/uL (0.1-0.8); Absolute Neutrophil Count 3.74 10^3/uL (1.2-6.7); Basophils % 0.4; Eosinophils % 6.7; HCT 44.1 % (40.0-50.0); Immature Grans % 0.4; Lymphocytes % 15.4; MCH 30.7 pg (27.0-33.0); MCV 90.4 fL (80-95); MPV 8.5 fL (8.0-11.0); Monocytes % 9.4; Neutrophils % 67.7; Nucleated RBC 0 %; Platelet Count 220 10^3/uL (130-400); RBC 4.88 10^6/uL (4.36-5.78); WBC 5.52 10^3/uL (4.4-10.8)
[2021-03-01 13:45] LABS: ALT 36 U/L (16-63); AST 18 U/L (15-37); Albumin 3.6 g/dL (3.4-5.0); Alkaline Phosphatase 77 U/L (46-116); Anion Gap 5.9 mmol/L (3-11); BUN 26 mg/dL (7-18); Bilirubin, Total 0.4 mg/dL (0.2-1.0); CO2 33.1 mmol/L (21.0-32.0); CREATININE 1.2 mg/dL (0.70-1.30); Calcium 9.4 mg/dL (8.5-10.1); Chloride 104 mmol/L (98-107); FREE T4 0.85 ng/dL (0.76-1.46); Glucose 99 mg/dL (74-106); Magnesium 2.1 mg/dL (1.8-2.4); Potassium 3.5 mmol/L (3.5-5.1); Sodium 143 mmol/L (136-145); TSH 1.95 uIU/mL (0.36-3.74); Total Protein 7.1 g/dL (6.4-8.2)
== END 2021-03-01 14:40 | disposition home or self-care (01) ==
LOC: LBO 14:45
PROVIDERS: PCP Nurse Practitioner Family; Visit Provider Internal Medicine Medical Oncology
DX: C34.32 Malignant neoplasm of lower lobe, left bronchus or lung (principal); Z79.899 Other long term (current) drug therapy
CPT/HCPCS: 36415; 80053; 83735; 84439; 84443; 85025

== ENCOUNTER 2021-03-29 03:03 | Outpatient (CLI) | payer MEDICARE, SELFPAY ==
[2021-03-29 13:21] LABS: Abs Immature Grans 0.03 10^3/uL (0.0-0.06); Absolute Basophil Count 0.04 10^3/uL (0.0-0.2); Absolute Eosinophil Count 0.34 10^3/uL (0.0-0.7); Absolute Lymphocyte Count 1.43 10^3/uL (1.2-3.4); Absolute Neutrophil Count 3.44 10^3/uL (1.2-6.7); Basophils % 0.7; Eosinophils % 5.7; HCT 43.3 % (40.0-50.0); HGB 14.7 g/dL (13.5-17.5); Immature Grans % 0.5; Lymphocytes % 23.9; MCH 30.7 pg (27.0-33.0); MCHC 33.9 % (32.0-36.0); MCV 90.4 fL (80-95); MPV 8.3 fL (8.0-11.0); Monocytes % 11.7; Neutrophils % 57.5; Nucleated RBC 0 %; Platelet Count 257 10^3/uL (130-400); RBC 4.79 10^6/uL (4.36-5.78); RDW-SD 42.9 fL; WBC 5.98 10^3/uL (4.4-10.8)
[2021-03-29 13:46] LABS: ALT 55 U/L (16-63); AST 25 U/L (15-37); Albumin 3.5 g/dL (3.4-5.0); Alkaline Phosphatase 73 U/L (46-116); Anion Gap 5.4 mmol/L (3-11); BUN 23 mg/dL (7-18); Bilirubin, Total 0.4 mg/dL (0.2-1.0); CO2 32.6 mmol/L (21.0-32.0); CREATININE 1.4 mg/dL (0.70-1.30); Calcium 9.1 mg/dL (8.5-10.1); Chloride 103 mmol/L (98-107); Estimated GFR 51.69 (mL/min/1.73m2); FREE T4 0.77 ng/dL (0.76-1.46); Glucose 91 mg/dL (74-106); Potassium 3.7 mmol/L (3.5-5.1); Sodium 141 mmol/L (136-145); TSH 1.39 uIU/mL (0.36-3.74); Total Protein 6.9 g/dL (6.4-8.2)
== END 2021-03-29 03:04 | disposition home or self-care (01) ==
LOC: LBO 03:03
PROVIDERS: PCP Nurse Practitioner Family; Visit Provider Internal Medicine Medical Oncology
DX: Z79.899 Other long term (current) drug therapy (principal); C34.32 Malignant neoplasm of lower lobe, left bronchus or lung; D89.89 Other specified disorders involving the immune mechanism, not elsewhere classified
CPT/HCPCS: 36415; 80053; 84439; 84443; 85025

== ENCOUNTER 2021-04-26 02:08 | Outpatient (CLI) | payer MEDICARE, SELFPAY ==
[2021-04-26 12:07] LABS: Abs Immature Grans 0.02 10^3/uL (0.0-0.06); Absolute Basophil Count 0.04 10^3/uL (0.0-0.2); Absolute Eosinophil Count 0.29 10^3/uL (0.0-0.7); Absolute Lymphocyte Count 1.29 10^3/uL (1.2-3.4); Absolute Monocyte Count 0.59 10^3/uL (0.1-0.8); Absolute Neutrophil Count 4.14 10^3/uL (1.2-6.7); Basophils % 0.6; Eosinophils % 4.6; HCT 47.4 % (40.0-50.0); HGB 16.1 g/dL (13.5-17.5); Immature Grans % 0.3; Lymphocytes % 20.3; MCH 30.7 pg (27.0-33.0); MCV 90.3 fL (80-95); MPV 8.4 fL (8.0-11.0); Monocytes % 9.3; Neutrophils % 64.9; Nucleated RBC 0 %; Platelet Count 323 10^3/uL (130-400); RBC 5.25 10^6/uL (4.36-5.78); RDW-SD 42.9 fL; WBC 6.37 10^3/uL (4.4-10.8)
[2021-04-26 12:34] LABS: ALT 36 U/L (16-63); AST 19 U/L (15-37); Albumin 3.6 g/dL (3.4-5.0); Alkaline Phosphatase 78 U/L (46-116); Anion Gap 6.7 mmol/L (3-11); BUN 26 mg/dL (7-18); Bilirubin, Total 0.4 mg/dL (0.2-1.0); CO2 33.3 mmol/L (21.0-32.0); CREATININE 1.2 mg/dL (0.70-1.30); Calcium 9.3 mg/dL (8.5-10.1); Chloride 103 mmol/L (98-107); FREE T4 0.88 ng/dL (0.76-1.46); Glucose 93 mg/dL (74-106); Potassium 3.2 mmol/L (3.5-5.1); Sodium 143 mmol/L (136-145); TSH 3.36 uIU/mL (0.36-3.74); Total Protein 7.4 g/dL (6.4-8.2)
== END 2021-04-26 02:09 | disposition home or self-care (01) ==
PROVIDERS: Nurse Practitioner Adult Health; PCP Nurse Practitioner Family; Visit Provider Internal Medicine Medical Oncology
DX: D89.89 Other specified disorders involving the immune mechanism, not elsewhere classified (principal); C34.32 Malignant neoplasm of lower lobe, left bronchus or lung
CPT/HCPCS: 36415; 80053; 84439; 84443; 85025

== ENCOUNTER 2021-07-19 03:30 | Outpatient (CLI) | payer MEDICARE, SELFPAY ==
[2021-07-19 13:44] LABS: Abs Immature Grans 0.02 10^3/uL (0.0-0.06); Absolute Basophil Count 0.05 10^3/uL (0.0-0.2); Absolute Lymphocyte Count 1.44 10^3/uL (1.2-3.4); Absolute Neutrophil Count 4.44 10^3/uL (1.2-6.7); Basophils % 0.7; Eosinophils % 4.4; HCT 44.4 % (40.0-50.0); HGB 15.3 g/dL (13.5-17.5); Immature Grans % 0.3; MCH 30.9 pg (27.0-33.0); MCHC 34.5 % (32.0-36.0); MCV 89.7 fL (80-95); MPV 8.5 fL (8.0-11.0); Monocytes % 8.8; Neutrophils % 64.8; Nucleated RBC 0 %; Platelet Count 247 10^3/uL (130-400); RBC 4.95 10^6/uL (4.36-5.78); RDW 12.8 % (11.8-14.1); RDW-SD 41.7 fL; WBC 6.85 10^3/uL (4.4-10.8)
[2021-07-19 14:06] LABS: ALT 48 U/L (16-63); AST 29 U/L (15-37); Albumin 3.8 g/dL (3.4-5.0); Alkaline Phosphatase 73 U/L (46-116); Anion Gap 5.5 mmol/L (3-11); BUN 23 mg/dL (7-18); Bilirubin, Total 0.3 mg/dL (0.2-1.0); CO2 30.5 mmol/L (21.0-32.0); CREATININE 1.3 mg/dL (0.70-1.30); Calcium 9.4 mg/dL (8.5-10.1); Chloride 106 mmol/L (98-107); Estimated GFR 56.31 (mL/min/1.73m2); FREE T4 0.89 ng/dL (0.76-1.46); Glucose 97 mg/dL (74-106); Sodium 142 mmol/L (136-145); TSH 2.01 uIU/mL (0.36-3.74)
== END 2021-07-19 03:31 | disposition home or self-care (01) ==
PROVIDERS: PCP Nurse Practitioner Family; Visit Provider Nurse Practitioner Adult Health
DX: C34.32 Malignant neoplasm of lower lobe, left bronchus or lung (principal); D89.89 Other specified disorders involving the immune mechanism, not elsewhere classified
CPT/HCPCS: 36415; 80053; 84439; 84443; 85025

== ENCOUNTER 2021-10-22 09:29 | Outpatient (CLI) | payer MEDICARE, SELFPAY ==
--- NOTE | 2021-10-22 13:36 | W.PFT ---
Date of service: 10/22/21 Time of Service: 08:30 Pulmonary Function Test Result Requesting Provider Duchene Indications: Dyspnea Interpretation Spirometry: Although the FEV1/FVC ratio is normal, airflow limitation is likely due to the appearance of the flow volume loop and the volume time curve. There is no significant bronchodilator effect. Lung Volumes: Normal lung volumes Diffusion Capacity: Decreased diffusion Airway Pressure: Normal airways resistance Impression Likely mild airflow obstruction. Otherwise normal pulmonary function testing. Note: Comapred to 02/06/20, the FEV1 and FVC are slightly improved. Clinical Correlation therefore is recommended.
== END 2021-10-22 09:30 | disposition home or self-care (01) ==
PROVIDERS: PCP Family Medicine; Visit Provider Student in an Organized Health Care Education/Training Program
DX: J44.9 Chronic obstructive pulmonary disease, unspecified (principal); Z85.118 Personal history of other malignant neoplasm of bronchus and lung; R06.09 Other forms of dyspnea; R05.9 Cough, unspecified; Z87.891 Personal history of nicotine dependence
CPT/HCPCS: 94060; 94726; 94729; 36600

== ENCOUNTER 2021-10-22 09:56 | Outpatient (CLI) | payer MEDICARE, SELFPAY ==
[2021-10-22 08:30] LABS: BE 2 mmol/L (-2-3); HCO3 26 mmol/L (22-26); pCO2 39 mmHg (35-45); pH 7.44 (7.35-7.45); pO2 91 mmHg (80-105); sO2 98 % (95-98); tCO2 23 mmol/L (23-27)
[2021-10-22 08:31] LABS: FIO2 ROOM AIR %; FIO2L ROOM AIR L
[2021-10-22 08:38] LABS: Abs Immature Grans 0.01 10^3/uL (0.0-0.06); Absolute Basophil Count 0.04 10^3/uL (0.0-0.2); Absolute Eosinophil Count 0.23 10^3/uL (0.0-0.7); Absolute Lymphocyte Count 1.47 10^3/uL (1.2-3.4); Absolute Monocyte Count 0.54 10^3/uL (0.1-0.8); Absolute Neutrophil Count 3.91 10^3/uL (1.2-6.7); Basophils % 0.6; Eosinophils % 3.7; HCT 43.5 % (40.0-50.0); HGB 15.6 g/dL (13.5-17.5); Immature Grans % 0.2; Lymphocytes % 23.7; MCH 31.7 pg (27.0-33.0); MCHC 35.9 % (32.0-36.0); MCV 88 fL (80-95); MPV 9.1 fL (8.0-11.0); Monocytes % 8.7; Neutrophils % 63.1; Platelet Count 262 10^3/uL (130-400); RBC 4.92 10^6/uL (4.36-5.78); RDW 12.7 % (11.8-14.1); RDW-SD 41.4 fL
[2021-10-22 09:13] LABS: ALT 42 U/L (16-63); AST 24 U/L (15-37); Albumin 3.7 g/dL (3.4-5.0); Alkaline Phosphatase 69 U/L (46-116); Anion Gap 6.6 mmol/L (3-11); BUN 22 mg/dL (7-18); Bilirubin, Total 0.5 mg/dL (0.2-1.0); CO2 29.4 mmol/L (21.0-32.0); CREATININE 1.3 mg/dL (0.70-1.30); Calcium 8.8 mg/dL (8.5-10.1); Chloride 102 mmol/L (98-107); Estimated GFR 56.31 (mL/min/1.73m2); FREE T4 0.95 ng/dL (0.76-1.46); Glucose 81 mg/dL (74-106); Potassium 3.4 mmol/L (3.5-5.1); Sodium 138 mmol/L (136-145); TSH 3.07 uIU/mL (0.36-3.74)
== END 2021-10-22 09:57 | disposition home or self-care (01) ==
LOC: LBO 09:56
PROVIDERS: Student in an Organized Health Care Education/Training Program; PCP Family Medicine; Visit Provider Nurse Practitioner Adult Health
DX: C34.32 Malignant neoplasm of lower lobe, left bronchus or lung (principal); D89.89 Other specified disorders involving the immune mechanism, not elsewhere classified
CPT/HCPCS: 36415; 80053; 82805; 84439; 84443; 85025

== ENCOUNTER 2022-01-24 13:47 | Outpatient (CLI) | payer MEDICARE, SELFPAY ==
[2022-01-24 11:52] LABS: Abs Immature Grans 0.01 10^3/uL (0.0-0.06); Absolute Basophil Count 0.05 10^3/uL (0.0-0.2); Absolute Eosinophil Count 0.45 10^3/uL (0.0-0.7); Absolute Lymphocyte Count 1.14 10^3/uL (1.2-3.4); Absolute Monocyte Count 0.53 10^3/uL (0.1-0.8); Absolute Neutrophil Count 4.01 10^3/uL (1.2-6.7); Basophils % 0.8; Eosinophils % 7.3; HCT 40.7 % (40.0-50.0); HGB 14.2 g/dL (13.5-17.5); Immature Grans % 0.2; Lymphocytes % 18.4; MCH 31.5 pg (27.0-33.0); MCHC 34.9 % (32.0-36.0); MCV 90 fL (80-95); MPV 8.7 fL (8.0-11.0); Monocytes % 8.6; Neutrophils % 64.7; Platelet Count 276 10^3/uL (130-400); RBC 4.51 10^6/uL (4.36-5.78); RDW-SD 42.6 fL; WBC 6.19 10^3/uL (4.4-10.8)
[2022-01-24 12:18] LABS: ALT 30 U/L (16-63); AST 23 U/L (15-37); Albumin 3.6 g/dL (3.4-5.0); Alkaline Phosphatase 83 U/L (46-116); Anion Gap 7.5 mmol/L (3-11); BUN 29 mg/dL (7-18); Bilirubin, Total 0.4 mg/dL (0.2-1.0); CO2 32.5 mmol/L (21.0-32.0); CREATININE 1.6 mg/dL (0.70-1.30); Calcium 9.6 mg/dL (8.5-10.1); Chloride 101 mmol/L (98-107); Estimated GFR 48.72 (mL/min/1.73m2); FREE T4 0.93 ng/dL (0.76-1.46); Glucose 84 mg/dL (74-106); Potassium 3.3 mmol/L (3.5-5.1); Sodium 141 mmol/L (136-145); TSH 1.23 uIU/mL (0.36-3.74); Total Protein 6.9 g/dL (6.4-8.2)
== END 2022-01-24 13:48 | disposition home or self-care (01) ==
LOC: LBO 13:48
PROVIDERS: PCP Family Medicine; Visit Provider Nurse Practitioner Adult Health
DX: C34.32 Malignant neoplasm of lower lobe, left bronchus or lung (principal); D89.89 Other specified disorders involving the immune mechanism, not elsewhere classified
CPT/HCPCS: 36415; 80053; 84439; 84443; 85025

== ENCOUNTER 2022-09-14 15:00 | Outpatient (CLI) | payer MEDICARE, SELFPAY ==
--- NOTE | 2022-09-14 06:00 | DI.RAD_ITS ---
Exam(s) XR PAIN CLINIC THORACIC SP 2V EXAM: XR PAIN CLINIC THORACIC SP 2V CLINICAL HISTORY: Dx: Chest Pain TECHNIQUE: 2D and realtime digital imaging was performed. Radiologist not present. CONTRAST MATERIAL: None. COMPARISON: No exams were available for comparison FINDINGS: Fluoroscopy was provided for pain management therapy. Please refer to procedure report or details. Radiation Exposure Index: Ka,r=10.87 mGy IMPRESSION: As above. RADIATION DOSE DELIVERED:
[2022-09-14 15:22] VITALS: BP 127/90; PULSE 91; RESP 20; TEMP 36.8; O2SAT 96
[2022-09-14] MEDS: Bupivacaine 0.5% Pres-Free 10 ML VIAL IJ (16:36)
[2022-09-14] MEDS: Lidocaine 2% Pres-Free 5 ML VIAL IJ (16:36)
[2022-09-14] MEDS: methylPREDNISolone ACETATE 40 MG/ML VIAL IJ (16:36)
[2022-09-14] MEDS: Omnipaque 240 MG/ML 50 ML BTL IJ (16:37)
[2022-09-14 16:41] VITALS: BP 153/85; PULSE 93; RESP 11; O2SAT 95
--- NOTE | 2022-09-16 08:50 | PDOC.PAIN ---
Date of service: 09/14/22 Time of Service: 16:15 Pain Managment Procedure Note Procedure Note Procedure Note: Intercostal Nerve Blocks Sergio Rodgers has been referred to the [facility] for intercostal nerve blocks. COMMENTS: I evaluated him prior to this procedure. He had lung cancer that required lung resection surgery and a chest tube placement. He continues with pain from the midclavicular area on the left at about the 8th rib to around the front of the left chest. He does have three scars to the left mid-back/chest. Dx: Left Intercostal neuralgia Pre-procedure pain VAS was 10/10 Patient was interviewed and the medical record reviewed. There were no medical, pharmacologic, radiographic or other structural contraindications to attempting fluoroscopically guided local anesthetic lintercostal blocks. Risks and expected side effects as well as potential benefit of the procedure were reviewed and voiced concerns addressed. The printed consent form was signed and witnessed. Standard time-out procedure was performed. Patient was placed in the prone position on the fluoroscopy table and automated blood pressure cuff and pulse oximeter applied. The skin entry points for approaching the anatomic target points of the left ribs were identified with anfluoroscopy and marked. From the area of pain and scar, it appeared that his pain was either from the 8th or 7th intercostal nerve. Following thorough Chlorhexadine preparation of the skin and draping and 1% lidocaine infiltration of the skin entry points and subcutaneous tissues, a 22 gauge 3.5 spinal needle was placed under fluoroscopic guidance down on to the target point onto the 8th rib approximately 5 cm lateral to the head of the rib. 1 cc of 1% Lidocaine was used to anesthetize the area of the rib. The needle was then carefully walked inferiorly down and then off the rib. Position was confirmed in A/P with 0.25ml of omnipaque 240. The contrast spread to the left and right just below the rib. At this point I injected 2 cc of 2% Lidocaine followed by 1/2 cc of Depomedrol (40 mg/cc) and then followed with 2 cc of 0.5% Bupivacaine. After 5 minutes the patient continued to have chest pain. I repeated this procedure at the left 7th intercostal nerve and again waited 5 minutes. At this time all of his chest pain was resolved. The needles were removed without difficulty. He had no difficulty breathing throughout the procedure. Vital signs were stable throughout the procedure and were as recorded in the docflowsheet by the nursing staff. Follow up plans and appointments were discussed and was instructed to keep careful note of how the usual pain was modified by these injections. Specifically was asked to keep a pain diary for the next 4 hours using a numeric pain scale of 0-10 and report these results at the follow-up visit. Post procedure instruction was given as documented in the nursing documentation and having met discharge criteria. Patient was discharged from the Pain Management Center. COMMENTS: Post-procedure pain VAS was 0/10. I did encourage him to use his incentive spirometer as this will help his breathing and to break up scar tissue. This procedure can be repeated if needed. Typically patients get a good portion of their pain removed with this procedure and a repeat procedure can often add to this improvement in pain. Munir Mesesr DO, MPH [facility]-Pain Management [facility] CC: Joanne Hector
== END 2022-09-14 15:01 | disposition home or self-care (01) ==
LOC: PC 15:00
PROVIDERS: PCP Family Medicine; Visit Provider Preventive Medicine Occupational Medicine
DX: G58.0 Intercostal neuropathy (principal)
CPT/HCPCS: 64420; 72070; J1030; Q9967

== ENCOUNTER 2022-12-05 08:30 | Outpatient (CLI) | payer MEDICARE, SELFPAY ==
--- NOTE | 2022-12-05 07:30 | DI.RAD_ITS ---
Exam(s) XR PAIN CLINIC THORACIC SP 2V EXAM: XR PAIN CLINIC THORACIC SP 2V CLINICAL HISTORY: Dx:Left Intercostal neuralgia. TECHNIQUE: Fluoroscopy was provided for the referring physician for guidance with performing pain cl inic injection procedure. COMPARISON: No exams were available for comparison FINDINGS: Please see procedure note for details. Fluoro time: 51.3 seconds RADIATION DOSE DELIVERED: Ka,r=5.9 mGy
[2022-12-05 08:45] VITALS: BP 130/92; PULSE 87; RESP 20; TEMP 36.6; O2SAT 96
[2022-12-05] MEDS: Dexamethasone Sod. Phos./Pres-Free 10 MG/ML VIAL IJ (09:31)
[2022-12-05] MEDS: Omnipaque 240 MG/ML 50 ML BTL IJ (09:31)
[2022-12-05] MEDS: Bupivacaine 0.5% Pres-Free 10 ML VIAL (09:31)
[2022-12-05] MEDS: Lidocaine 2% Pres-Free 5 ML VIAL IJ (09:32)
[2022-12-05 09:33] VITALS: BP 130/95; PULSE 88; RESP 21; O2SAT 93
--- NOTE | 2022-12-05 10:19 | PDOC.PAIN ---
Date of service: 12/05/22 Time of Service: 09:15 Pain Managment Procedure Note Procedure Note Procedure Note: PROCEDURE NOTE LEFT 8th INTERCOSTAL NERVE BLOCK Date of Service: December 05, 2022 Patient: Sergio Rodgers Provider: Munir Messer DO, MPH COMMENTS: I previously evaluated the patient in the office and their symptoms in relation to the intercostal nerve pain have remained the same. He did well with the last intercostal nerve block Pre-operative diagnosis: Intercostal neuralgia Post-operative diagnosis: Same Pre-procedure pain: VAS= 7/10 Mr. Rodgers has been referred to our [facility] for a Left 8th intercostal nerve block. Mr. Rodgers was interviewed and the medical record reviewed. There were no medical, pharmacologic, radiographic or other structural contraindications to attempting a fluoroscopically-guided, contrast-enhanced, intra-articular intercostal nerve block. The risks, benefits, and potential side effects of this procedure were reviewed with the patient. Questions and concerns were addressed. After it was clear that he was fully informed about the procedure, the printed consent form was signed by the patient and myself. Mr. Rodgers was placed in the prone position on the fluoroscopy table and an automated blood pressure cuff, 3 lead EKG, and pulse oximeter were applied. The skin entry point for approaching the Left 8th intercostal nerve was identified under the most advantageous fluoroscopic view and marked. Following thorough Chlorhexadine preparation of the skin and draping with sterile surgical drapes, 2 mls of 1% lidocaine was infiltrated into the skin at the entry point and the surrounding subcutaneous tissues.? Next, this needle was advanced under fluoroscopic guidance to the rib.? I then injected 1 cc of 1% Lidocaine onto the rib.? I then slowly walked the needle inferiorly off of the inferior portion of the rib. Intra-neural sheath placement was confirmed by a clear neurogram resulting from the injection of 0.5ml of Omnipaque-240. Next, I injected 2 cc of 1% preservative-free Lidocaine followed by 1.5 ml of Dexamethasone 15 mg/ml was injected with an initial reproduction of a significant component of the usual pain.? This was followed with 1 ml of 1% Lidocaine.? The needle was then removed without difficulty. (49 ml of Omnipaque-240 was wasted).? Mr. Rodgers's vital signs were stable throughout the procedure and were as recorded in nursing records. Follow up plans and appointments were discussed with him. Post procedure instructions were given as documented in nursing records.? Having met discharge criteria, he was discharged from the [facility]. COMMENTS: Post-procedure pain: VAS= 0/10. If the patient receives at least 50% improvement in pain and/or function for at least 3 months, this procedure can be repeated if needed. I personally performed this entire procedure. MUNIR MESSER DO, MPH [employer]-subspecialty board certification in Pain Medicine [facility] [facility]
== END 2022-12-05 08:31 | disposition home or self-care (01) ==
PROVIDERS: PCP Family Medicine; Visit Provider Preventive Medicine Occupational Medicine
DX: R07.82 Intercostal pain (principal); G58.0 Intercostal neuropathy
CPT/HCPCS: 64420; 72070; Q9967

== ENCOUNTER → 2023-01-31 13:01 | Outpatient (BNVA) | payer MEDICARE, SELFPAY | PROVIDERS: PCP Family Medicine; Visit Provider Physician Assistant Surgical | DX: J44.9 Chronic obstructive pulmonary disease, unspecified (principal); R07.9 Chest pain, unspecified; J70.1 Chronic and other pulmonary manifestations due to radiation; C7A.8 Other malignant neuroendocrine tumors; C34.90 Malignant neoplasm of unspecified part of unspecified bronchus or lung; Z87.891 Personal history of nicotine dependence | CPT/HCPCS: 99214 ==

== ENCOUNTER → 2023-08-04 10:20 | Outpatient (BNVA) | payer MEDICARE, SELFPAY | PROVIDERS: PCP Family Medicine; Referring Provider Family Medicine; Visit Provider Student in an Organized Health Care Education/Training Program | DX: J44.9 Chronic obstructive pulmonary disease, unspecified (principal); C7A.8 Other malignant neuroendocrine tumors; C34.90 Malignant neoplasm of unspecified part of unspecified bronchus or lung; J70.1 Chronic and other pulmonary manifestations due to radiation; R07.9 Chest pain, unspecified; Z87.891 Personal history of nicotine dependence | CPT/HCPCS: 99214 ==

== ENCOUNTER → 2023-11-02 09:56 | Outpatient (BNVA) | payer MEDICARE, SELFPAY | PROVIDERS: PCP Family Medicine; Referring Provider Family Medicine; Visit Provider Internal Medicine Critical Care Medicine | DX: J44.9 Chronic obstructive pulmonary disease, unspecified (principal); C7A.8 Other malignant neuroendocrine tumors; R07.9 Chest pain, unspecified; R06.83 Snoring; Z87.891 Personal history of nicotine dependence | CPT/HCPCS: 99215 ==

== ENCOUNTER → 2023-11-29 10:03 | Outpatient (BNVA) | payer MEDICARE, SELFPAY | PROVIDERS: PCP Family Medicine; Referring Provider Family Medicine; Visit Provider Physician Assistant Surgical | DX: J44.9 Chronic obstructive pulmonary disease, unspecified (principal); C7A.8 Other malignant neuroendocrine tumors; C34.90 Malignant neoplasm of unspecified part of unspecified bronchus or lung; J70.1 Chronic and other pulmonary manifestations due to radiation; R07.9 Chest pain, unspecified; Z87.891 Personal history of nicotine dependence | CPT/HCPCS: 94618; 99214 ==

== ENCOUNTER 2023-12-04 04:19 | Outpatient (CLI) | payer MEDICARE, SELFPAY ==
[2023-12-04] MEDS: Albuterol/Ipratropium 3 ML UPD VIAL UPD (17:09)
--- NOTE | 2023-12-11 15:24 | W.PFT ---
Date of service: 12/04/23 Time of Service: 15:00 Pulmonary Function Test Result Requesting Provider Joanne Hare Indications: COPD Impression Spirometry shows decreased FEV1/FVC of 47%. Severe decrease in FEV1 of 42% with significant reversibility after levalbuterol going up to 81%. Normal lung volumes with no air trapping. Moderate decrease in DLCO. Flow volume curve suggests obstruction. Impression Severe obstructive ventilatory defect with significant reversibility to levalbuterol and moderate increase in DLCO. Clinical Correlation therefore is recommended.
== END 2023-12-04 04:20 | disposition home or self-care (01) ==
LOC: RT 04:19
PROVIDERS: PCP Family Medicine; Visit Provider Physician Assistant Surgical
DX: J44.9 Chronic obstructive pulmonary disease, unspecified (principal)
CPT/HCPCS: 00123; 94060; 94726; 94729; J7620

== ENCOUNTER → 2024-02-28 13:12 | Outpatient (BNVA) | payer MEDICARE, SELFPAY | PROVIDERS: PCP Family Medicine; Referring Provider Family Medicine; Visit Provider Physician Assistant Surgical | DX: J44.9 Chronic obstructive pulmonary disease, unspecified (principal); C7A.8 Other malignant neuroendocrine tumors; C34.90 Malignant neoplasm of unspecified part of unspecified bronchus or lung; J70.1 Chronic and other pulmonary manifestations due to radiation; Z87.891 Personal history of nicotine dependence; R07.9 Chest pain, unspecified | CPT/HCPCS: 36415; 99214 ==

== ENCOUNTER 2024-02-28 16:35 | Outpatient (REF) | payer MEDICARE, SELFPAY ==
[2024-02-28 17:12] LABS: Abs Immature Grans 0.01 10^3/uL (0.0-0.06); Absolute Basophil Count 0.06 10^3/uL (0.0-0.2); Absolute Eosinophil Count 0.52 10^3/uL (0.0-0.7); Absolute Lymphocyte Count 1.91 10^3/uL (1.2-3.4); Absolute Monocyte Count 0.59 10^3/uL (0.1-0.8); Absolute Neutrophil Count 3.95 10^3/uL (1.2-6.7); Basophils % 0.9 %; Eosinophils % 7.4 %; HCT 45.9 % (40.0-50.0); HGB 15.7 g/dL (13.5-17.5); Immature Grans % 0.1 %; Lymphocytes % 27.1 %; MCH 30.8 pg (27.0-33.0); MCHC 34.2 % (32.0-36.0); MCV 90 fL (80-95); MPV 9.2 fL (8.0-11.0); Monocytes % 8.4 %; Neutrophils % 56.1 %; Platelet Count 251 10^3/uL (130-400); RDW 12.6 % (11.8-14.1); RDW-SD 42.2 fL; WBC 7.04 10^3/uL (4.4-10.8)
[2024-03-01 09:00] LABS: IgE 6 IU/mL (<158)
== END 2024-02-28 16:36 | disposition home or self-care (01) ==
LOC: LBN 16:35
PROVIDERS: PCP Family Medicine; Visit Provider Physician Assistant Surgical
DX: J44.9 Chronic obstructive pulmonary disease, unspecified (principal)
CPT/HCPCS: 82785; 85025

== ENCOUNTER → 2024-07-02 14:01 | Outpatient (BNVA) | payer MEDICARE, SELFPAY | PROVIDERS: PCP Family Medicine; Referring Provider Family Medicine; Visit Provider Physician Assistant Surgical | DX: C7A.8 Other malignant neuroendocrine tumors (principal); C34.90 Malignant neoplasm of unspecified part of unspecified bronchus or lung; J44.9 Chronic obstructive pulmonary disease, unspecified; J70.1 Chronic and other pulmonary manifestations due to radiation; R07.9 Chest pain, unspecified; Z87.891 Personal history of nicotine dependence | CPT/HCPCS: 99214 ==

== ENCOUNTER → 2024-10-08 08:02 | Outpatient (BNVA) | payer MEDICARE, SELFPAY | PROVIDERS: PCP Family Medicine; Referring Provider Family Medicine; Visit Provider Physician Assistant Surgical | DX: C7A.8 Other malignant neuroendocrine tumors (principal); C34.90 Malignant neoplasm of unspecified part of unspecified bronchus or lung; J44.9 Chronic obstructive pulmonary disease, unspecified; J70.1 Chronic and other pulmonary manifestations due to radiation; Z87.891 Personal history of nicotine dependence; R07.9 Chest pain, unspecified; J45.909 Unspecified asthma, uncomplicated | CPT/HCPCS: 99215; 94618 ==

== ENCOUNTER 2024-10-09 08:32 | Outpatient (RCR) | payer MEDICARE, SELFPAY | END 2024-10-21 23:59 | disposition home or self-care (01) | LOC: PRC 08:32 | PROVIDERS: PCP Family Medicine; Visit Provider Physician Assistant Surgical ==

== ENCOUNTER → 2024-12-31 12:31 | Outpatient (BNVA) | payer MEDICARE, SELFPAY | PROVIDERS: PCP Family Medicine; Referring Provider Family Medicine; Visit Provider Physician Assistant Surgical | DX: C7A.8 Other malignant neuroendocrine tumors (principal); C34.90 Malignant neoplasm of unspecified part of unspecified bronchus or lung; J44.9 Chronic obstructive pulmonary disease, unspecified; J70.1 Chronic and other pulmonary manifestations due to radiation; Z87.891 Personal history of nicotine dependence; R07.9 Chest pain, unspecified | CPT/HCPCS: 99214 ==

== ENCOUNTER 2025-01-14 10:52 | Outpatient (CLI) | payer MEDICARE, SELFPAY ==
--- NOTE | 2025-01-14 06:00 | DI.RAD_ITS ---
Exam(s) XR PAIN CLINIC THORACIC SP 2V EXAM: XR PAIN CLINIC THORACIC SP 2V CLINICAL HISTORY: DX: left chest pain. TECHNIQUE: Fluoroscopy was provided for the referring physician for guidance with performing pain clinic injection procedure. COMPARISON: No exams were available for comparison FINDINGS: Please see procedure note for details. Fluoro time: 3.8 seconds RADIATION DOSE DELIVERED: xavi Mann=3.13 mGy
[2025-01-14 10:57] VITALS: BP 136/106; PULSE 105; RESP 20; TEMP 36.6; O2SAT 96
--- NOTE | 2025-01-14 11:14 | PDOC.PAIN ---
Date of service: 01/14/25 Time of Service: 11:46 Pain Managment Procedure Note Procedure Note Procedure Note: INTERCOSTAL NERVE Block ? Location: Left ? Levels: T5, 6? Pre-procedure Diagnosis: G58.0 intercostal neuralgia ? Post-procedure Diagnosis:? The same as above ? Sedation: NONE? Estimated blood loss:? less than 2 cc ? Surgeon:? Santino Najera MD COMMENT: PRE PROCEDURE PAIN SCORE: /10 ? Procedure Detail:? The procedure and potential risks were explained to the patient and informed written consent was obtained. The patient was escorted to the procedure room and placed in the prone position. Pillows were utilized for proper positioning and comfort.? Time out was performed in procedure room with nursing staff confirming the patient's identity, procedure to be performed, allergies, and any blood thinning or anti-platelet medications. The patient's lower back was prepped with chlorhexidine and draped in a sterile fashion. Sterile technique was maintained throughout the procedure.? Sterile gloves were used, a face mask was worn, and new single dose vials of all medications were used with the top being swabbed with alcohol and given time to dry prior to withdrawal of medication.? A left -sided A/P and oblique fluoroscopic view was obtained, with visualization of the: ? LEFT T5 and T6 ? rib(s). Lidocaine 1% was used to anesthetize the skin. A 25-gauge Quincke needle was advanced until it touched the rib. It was then walked inferiorly until it slipped off bone.? Proper placement was verified in A/P, oblique under fluoroscopy. At this location, following negative aspiration, 0.5 mL of Omnipaque 240 confirming position followed by 2cc 0.5% bupivacaine and 40 mg Depo-Medrol was injected.? The patient tolerated the procedure well and was transported to the recovery area for observation and discharge instructions. Permanent images saved and recorded. Follow-up:? As needed COMMENT:Pain went from 9/10 to 0 /10. Before the patient left patient had greater than 100% pain relief. Depending on how long this last consider using phenol 6 or 10% . Coding Conscious Sedation used for procedure: No CPT Codes: Intercostal Nerve, Single - 41330 ([id number] ~G) LT - LEFT SIDE Intercostal Nerve, Regional - 01980 ([id number] ~G) LT - LEFT SIDE 2nd level Additional Codes: Date of Service (28366) Date of service: 01/14/25 Diagnoses: G58.0 intercostal neuralgia
[2025-01-14 11:32] VITALS: PULSE 91; O2SAT 95
[2025-01-14 11:40] VITALS: PULSE 97; O2SAT 94
[2025-01-14] MEDS: Nerve Block Tray 1 EACH MC (11:45)
[2025-01-14] MEDS: Bupivacaine 0.5% Pres-Free 10 ML VIAL IJ (11:46)
[2025-01-14] MEDS: Omnipaque 240 MG/ML 50 ML BTL IJ (11:46)
[2025-01-14] MEDS: methylPREDNISolone ACETATE 40 MG/ML VIAL IJ (11:46)
== END 2025-01-14 10:53 | disposition home or self-care (01) ==
LOC: PC 10:53
PROVIDERS: PCP Family Medicine; Visit Provider Anesthesiology Pain Medicine
DX: R07.81 Pleurodynia (principal); G58.0 Intercostal neuropathy
CPT/HCPCS: 64420; 64421; 72070; J0665; J1010; Q9967

== ENCOUNTER → 2025-02-06 08:52 | Outpatient (BNVA) | payer MEDICARE, SELFPAY | PROVIDERS: PCP Family Medicine; Referring Provider Family Medicine; Visit Provider Surgery | DX: S22.42XA Multiple fractures of ribs, left side, initial encounter for closed fracture (principal); R07.89 Other chest pain; X58.XXXA Exposure to other specified factors, initial encounter; Z85.118 Personal history of other malignant neoplasm of bronchus and lung | CPT/HCPCS: 99214 ==